=== PATIENT | female | born 1950 | race Two or more races ===

== ENCOUNTER 2025-03-05 03:59 | Emergency (ER) | payer OTHER ==
[~2025-03-05] VITALS: Ht 154.9 cm; Wt 79.4 kg
[2025-03-05] MEDS ORDERED: HYOSCYAMINE SULFATE 0.125 MG TAB.SUBL SL STA (04:25)
[2025-03-05] MEDS ORDERED: FAMOTIDINE/PF 20 MG/2 ML VIAL IV PUSH STA (04:27)
[2025-03-05] MEDS ORDERED: LACTOBACILLUS ACIDOPHILUS 1 CAP CAP PO STA (04:27)
[2025-03-05] MEDS ORDERED: 0.9 % SODIUM CHLORIDE 1,000 ML IV ONE (04:30)
[2025-03-05] MEDS ORDERED: FAMOTIDINE/PF 20 MG/2 ML VIAL ONE (04:36)
[2025-03-05] MEDS ORDERED: LACTOBACILLUS ACIDOPHILUS 1 CAP CAP PO ONE (04:36)
[2025-03-05] MEDS ORDERED: HYOSCYAMINE SULFATE 0.125 MG TAB.SUBL ONE (04:36)
[2025-03-05 05:21] LABS: HEMATOCRIT 46.6 % (36.0-45.00); HEMOGLOBIN 15.9 g/dL (12.0-15.00); MEAN CELL VOLUME 93.7 fL (80.00-100.00); MEAN CORPUSCULAR HEMOGLOBIN 31.9 pg (27.00-32.0); PLATELET COUNT 142 K/uL (150-450); RED BLOOD COUNT 4.97 M/uL (4.00-6.00); RED CELL DISTRIBUTION WIDTH 13.7 % (11.5-14.5)
[2025-03-05 05:44] LABS: ALBUMIN 3.6 gm/dL (3.4-5.0); BILIRUBIN TOTAL 1.35 mg/dL (0.3-1.2); CALCIUM 8.9 mg/dL (8.5-10.1); CREATININE SERUM 0.76 mg/dL (0.55-1.02); GFR 74.19; GLOBULINA 3.2 G/DL (2.4-3.5); POTASSIUM 3.44 mEq/L (3.5-5.1); TOTAL PROTEIN 6.8 gm/dL (6.4-8.2)
[2025-03-05 07:40] LABS: URINE APPEARANCE Clear; URINE BILIRRUBIN Small (NEGATIVE); URINE BLOOD Negative; URINE COLOR Dark Yellow; URINE GLUCOSE Negative (NEGATIVE); URINE KETONE 15 (NEGATIVE); URINE LEUKOCYTE Trace; URINE NITRATE Negative; URINE PROTEIN 30 (NEGATIVE)
[2025-03-05 07:43] LABS: URINE BACTERIA 293.7 uL (0.0-1933); URINE EPITHELIAL CELLS 16.9 uL (0.0-38.8); URINE WBC 13.6 uL (0.0-23.2)
[2025-03-05 07:44] LABS: URINE CAST 0.58 uL (0.0-1.40)
[2025-03-05] MEDS ORDERED: PROTONIX40 MG PO (09:45)
[2025-03-05] MEDS ORDERED: PROBIOTIC1 EAC2 PO (09:45)
[2025-03-05] MEDS ORDERED: BACTRIM DS TAB1 EACH PO (09:45)
== END 2025-03-05 10:44 | disposition home or self-care (01) ==
LOC: ER 03:59
PROVIDERS: General Practice
DX: N39.0 Urinary tract infection, site not specified (principal); R53.81 Other malaise; I10 Essential (primary) hypertension
CPT/HCPCS: 36415; 96365; 96366; 99283; J3490

== ENCOUNTER 2025-04-25 12:20 | Emergency (ER) | payer OTHER ==
[~2025-04-25] VITALS: Ht 154.9 cm; Wt 79.4 kg
[~2025-04-25 12:20] MED LIST: BACTRIM DS TAB1 EACH PO; PROBIOTIC1 EAC2 PO; PROTONIX40 MG PO
[2025-04-25 12:38] VITALS: BP 111/81; O2SAT 97
[2025-04-25] MEDS ORDERED: LABETALOL HCL1 GM (12:41)
[2025-04-25] MEDS ORDERED: ATORVASTATIN CA10 MG (12:41)
[2025-04-25 14:46] LABS: BASO % 0.6 % (0.1-1.2); EOS % 1.4 % (0.7-7.0); HEMATOCRIT 44.8 % (34.1-44.9); HEMOGLOBIN 15.8 g/dL (11.2-15.7); LYMPH % 27.2 % (19.3-53.1); MEAN CORPUSCULAR HEMOGLOBIN 31.9 pg (25.6-32.2); MONO # 0.44 (0.24-0.82); MONO % 6.3 % (4.7-12.5); NEUT # 4.49 (1.56-6.13); NEUT % 64.4 % (34.0-71.1); PLATELET COUNT 196 K/uL (163-369); RED BLOOD COUNT 4.95 M/uL (3.93-5.22); RED CELL DISTRIBUTION WIDTH 11.9 % (11.6-14.4)
[2025-04-25 15:32] LABS: ALBUMIN 3.6 gm/dL (3.4-5.0); BILIRUBIN TOTAL 0.67 mg/dL (0.3-1.2); CALCIUM 9.4 mg/dL (8.5-10.1); CREATININE SERUM 0.81 mg/dL (0.55-1.02); GFR 68.93; POTASSIUM 4.07 mEq/L (3.5-5.1); TOTAL PROTEIN 6.6 gm/dL (6.4-8.2)
[2025-04-25 16:43] LABS: PH,URINE 5.5 (5.0-8.0); URINE APPEARANCE Clear; URINE BILIRRUBIN Negative (NEGATIVE); URINE BLOOD Negative; URINE COLOR Yellow; URINE GLUCOSE Negative (NEGATIVE); URINE KETONE Negative (NEGATIVE); URINE LEUKOCYTE Negative; URINE NITRATE Negative; URINE PROTEIN Negative (NEGATIVE); URINE UROBILINOGEN 0.2 E.U./dl
[2025-04-25 16:54] LABS: URINE RBC 2.7 uL (0.0-20.8); URINE WBC 6.6 uL (0.0-23.2)
[2025-04-25 17:03] LABS: URINE CAST 0.14 uL (0.0-1.40)
== END 2025-04-25 17:43 | disposition home or self-care (01) ==
LOC: ER 12:20
PROVIDERS: Emergency Medicine
DX: R07.89 Other chest pain (principal); I10 Essential (primary) hypertension